=== PATIENT | female | born 1995 | race Caucasian/White ===

== ENCOUNTER 2019-06-08 10:33 | Emergency (ER) | payer OTHER ==
[2019-06-08 10:46] VITALS: BP 126/75; PULSE 100; TEMP 98.2; BMI 18.3
[2019-06-08] MEDS ORDERED: PHENAZOPYRIDINE HCL 100 MG TABLET (FP) PO ONE (11:15)
[2019-06-08] MEDS ORDERED: PHENAZOPYRIDINE HCL 100 MG TABLET (FP) ONE (11:15)
--- NOTE | 2019-06-08 11:24 | PDOC ---
History of Present Illness - General Chief Complaint: Urinary Problem Stated Complaint: UPPER BACK PAIN Time Seen by Provider: 06/08/19 10:54 History Source: Patient Exam Limitations: Clinical Condition - History of Present Illness Initial Comments: 06/08/19 11:19 Patient with no significant past medical history presented with complaint of 3- day history of burning with urination, urinary frequency and bilateral upper back pain. Denies nausea, vomiting, fever or chills. Patient reports taking [id number] Azo medication which has been helping with symptoms. Denies any other symptoms Is this a multiple visit Asthma Patient?: No Past History - Past Medical History Allergies/Adverse Reactions: Allergies Allergy/AdvReac Type Severity Reaction Status Date / Time No Known Allergies Allergy Verified 06/08/19 10:43 Home Medications: Ambulatory Orders Ciprofloxacin HCl [Cipro] 500 mg PO BID 7 Days #14 tablet 06/08/19 Phenazopyridine HCl [Pyridium -] 100 mg PO TID 2 Days #6 tablet 06/08/19 COPD: No - Psycho Social/Smoking Cessation Hx Smoking History: Never smoked Have you smoked in the past 12 months: No Hx Alcohol Use: No Drug/Substance Use Hx: No Substance Use Type: None Hx Substance Use Treatment: No Review of Systems - Review of Systems Able to Perform ROS?: Yes Is the patient limited Faroese proficient: No Constitutional: No: Chills, Fever, Malaise HEENTM: No: Symptoms Reported Respiratory: No: Symptoms reported Cardiac (ROS): No: Symptoms Reported ABD/GI: No: Symptoms Reported : Yes: Symptoms Reported, See HPI, Burning, Dysuria, Frequency, Urgency Musculoskeletal: Yes: Symptoms Reported, See HPI, Back Pain (b/l back) Integumentary: No: Symptoms Reported Neurological: No: Symptoms reported All Other Systems: Reviewed and Negative *Physical Exam - Vital Signs Last Vital Signs Temp Pulse Resp BP Pulse Ox 98.2 F 100 H 18 126/75 100 06/08/19 10:45 06/08/19 10:45 06/08/19 10:45 06/08/19 10:45 06/08/19 10:45 - Physical Exam General Appearance: Yes: Nourished, Appropriately Dressed. No: Apparent Distress HEENT: positive: Normal ENT Inspection Neck: positive: Supple Respiratory/Chest: positive: Lungs Clear, Normal Breath Sounds. negative: Respiratory Distress, Accessory Muscle Use Cardiovascular: positive: Regular Rhythm, Regular Rate Gastrointestinal/Abdominal: positive: Normal Bowel Sounds, Tender (mild suprapubic tenderness), Flat, Soft. negative: Organomegaly, Distended, Guarding , Rebound Musculoskeletal: positive: Normal Inspection. negative: CVA Tenderness Extremity: positive: Normal Inspection Integumentary: positive: Normal Color Neurologic: positive: Fully Oriented, Alert, Normal Mood/Affect, Normal Response ED Treatment Course - Medications Given in the ED: ED Medications Discontinued Medications Generic Name Dose Route Start Last Admin Trade Name Christopher PRN Reason Stop Dose Admin Phenazopyridine HCl 200 mg 06/08/19 11:15 06/08/19 11:17 Pyridium - PO 06/08/19 11:16 200 mg ONCE ONE Administration Medical Decision Making - Medical Decision Making 06/08/19 11:20 Patient with no significant past medical history presented with complaint of 3- day history of burning with urination, urinary frequency and bilateral upper back pain. Denies nausea, vomiting, fever or chills. Patient reports taking [id number] Azo medication which has been helping with symptoms. Denies any other symptoms Exam significant for mild tenderness to suprapubic region and bilateral. No CVA tenderness. Symptoms likely UTI cystitis versus less likely pyelonephritis 06/08/19 11:37 UA, urine culture urine hCG level ordered. Pyridium 200 mg p.o. ordered for dysuria. Urine GC and chlamydia tests ordered 06/08/19 12:24 UA shows leukocytosis with WBCs. Urine hCG negative. Patient stable for discharge on Cipro antibiotics and Pyridium pending urine culture results Discharge - Discharge Information Problems reviewed: Yes Clinical Impression/Diagnosis: UTI (urinary tract infection) Qualifiers: Urinary tract infection type: acute cystitis Hematuria presence: without hematuria Qualified Code(s): N30.00 - Acute cystitis without hematuria Condition: Stable Disposition: HOME - Admission No - Additional Discharge Information Prescriptions: Ciprofloxacin HCl [Cipro] 500 mg PO BID 7 Days #14 tablet Phenazopyridine HCl [Pyridium -] 100 mg PO TID 2 Days #6 tablet - Follow up/Referral Referrals: Danny Alexis [Primary Care Provider] - - Patient Discharge Instructions Patient Printed Discharge Instructions: DI for Urinary Tract Infection (UTI) Additional Instructions: Your urine shows bacteria. Take prescribed medication as prescribed. Increase fluid intake. You will be contacted with urine culture results. Follow-up with primary care - Post Discharge Activity
[2019-06-08 11:25] LABS: EPI CELLS 0.3 /HPF (0-5/HPF); HYALINE CASTS 1 /lpf (0-8); URINE APPEARANCE CLOUDY; URINE BACTERIA 45.3 /hpf (NEGATIVE); URINE BILIRUBIN NEGATIVE (NEGATIVE); URINE COLOR YELLOW; URINE GLUCOSE (UA) NEGATIVE (NEGATIVE); URINE KETONE NEGATIVE (NEGATIVE); URINE LEUK ESTERASE 3+ (NEGATIVE); URINE NITRITE NEGATIVE (NEGATIVE); URINE PROTEIN NEGATIVE (NEGATIVE); URINE RBC 14 /hpf (0-4); URINE UROBILINOGEN 0.2 mg/dL (0.2-1.0); URINE WBC 234 /hpf (0-5)
== END 2019-06-08 12:32 | disposition home or self-care (01) ==
LOC: JERFT 10:33
DX: N30.00 Acute cystitis without hematuria (principal)
CPT/HCPCS: 36415; 81003; 84703; 87086; 87186; 87491; 87591; 99282-25

== ENCOUNTER 2024-04-16 10:01 | Emergency (ER) | payer OTHER ==
[2024-04-16 10:46] VITALS: TEMP 98.4; BMI 18.3
[2024-04-16] MEDS ORDERED: FAMOTIDINE 20 MG/50 ML IVPB 20 MG/50 ML MG IVPB ONE (12:03)
[2024-04-16 12:04] LABS: BASO % 0.4 % (0-2.0); EOS % 0.2 % (0-4.5); HEMATOCRIT 34.6 % (32.4-45.2); HEMOGLOBIN 11.6 GM/dL (10.7-15.3); LYMPH % 13.6 % (8-40); MCH 29.5 pg (25.7-33.7); MCHC 33.4 g/dl (32.0-36.0); MEAN CELL VOLUME 88.1 fl (80-96); MEAN PLT VOLUME 8.1 fl (7.5-11.1); MONO % 5.7 % (3.8-10.2); NEUT % 80.1 % (42.8-82.8); PLATELET COUNT 256 10^3/uL (134-434); RBC 3.93 M/mm3 (3.60-5.2); RDW 13.5 % (11.6-15.6); WHITE BLOOD COUNT 8.5 K/mm3 (4.0-10.0)
[2024-04-16] MEDS ORDERED: ONDANSETRON 4 MG/2 ML VIAL ONE (12:04)
[2024-04-16] MEDS: SODIUM CHLORIDE 0.9% 500 ML INFUS.BAG IV ONE (12:09)
[2024-04-16] MEDS: FAMOTIDINE 20 MG/50 ML IVPB 20 MG/50 ML MG IVPB ONE (12:10)
[2024-04-16] MEDS: ONDANSETRON 4 MG/2 ML VIAL IVPUSH ONE (12:10)
[2024-04-16 12:22] LABS: POTASSIUM 3.8 mmol/L (3.5-5.1)
[2024-04-16 12:24] LABS: CALCIUM 9.1 mg/dL (8.5-10.1)
[2024-04-16 12:25] LABS: ALBUMIN 3.6 g/dl (3.4-5.0); BLOOD UREA NITROGEN 12.6 mg/dL (7-18)
[2024-04-16 12:28] LABS: CREATININE 0.4 mg/dL (0.55-1.3)
[2024-04-16 12:29] LABS: BILIRUBIN,TOTAL 0.6 mg/dL (0.2-1); TOT PROT 6.6 g/dl (6.4-8.2)
[2024-04-16 13:47] LABS: URINE APPEARANCE CLEAR; URINE BILIRUBIN NEGATIVE (NEGATIVE); URINE COLOR YELLOW; URINE GLUCOSE (UA) NEGATIVE (NEGATIVE); URINE KETONE 4+ (NEGATIVE); URINE LEUK ESTERASE NEGATIVE (NEGATIVE); URINE NITRITE NEGATIVE (NEGATIVE); URINE PROTEIN NEGATIVE (NEGATIVE)
[2024-04-16 14:34] VITALS: BP 106/62; PULSE 94; RESP 16
== END 2024-04-16 17:19 | disposition home or self-care (01) ==
LOC: JER 10:01
PROC: 3E033GC Introduction of Other Therapeutic Substance into Peripheral Vein, Percutaneous Approach (ICD-10-PCS; principal; 2024-04-16)
PROC: 3E033GC Introduction of Other Therapeutic Substance into Peripheral Vein, Percutaneous Approach (ICD-10-PCS; 2024-04-16)
DX: O99.611 Diseases of the digestive system complicating pregnancy, first trimester (principal); K52.9 Noninfective gastroenteritis and colitis, unspecified; O26.891 Other specified pregnancy related conditions, first trimester; R10.13 Epigastric pain; R10.12 Left upper quadrant pain; O21.9 Vomiting of pregnancy, unspecified; Z3A.01 Less than 8 weeks gestation of pregnancy
CPT/HCPCS: 36415; 76817-TC; 80053; 81003; 83690; 84702; 84703; 85025; 87086; 99284-25